=== PATIENT | male | born 1960 | race Caucasian/White ===

== ENCOUNTER 2023-08-26 00:51 | Day surgery (SDC) | payer BC, SELFPAY ==
[2023-07-28 15:22] VITALS: BMI 31.8
--- NOTE | 2023-08-22 10:31 | SUR.PREOP ---
Patient called regarding upcoming procedure. Reviewed preop instructions, appointment times, and procedure prep.
[2023-08-26 07:51] VITALS: BP 167/103; PULSE 97; RESP 18; TEMP 36.2; O2SAT 98
[2023-08-26] MEDS: LACTATED RINGERS 1,000 ML 150 ML IV CONT (08:05)
--- NOTE | 2023-08-26 08:55 | WPDANESEPPF ---
Anes - Initial Pre Proc Eval Procedure: Operation Date: 08/26/23 09:00 Proposed Procedures p Screening Colonoscopy - Vargas Roa MD Date/Time: 08/26/23 08:55 Surgeon: Vargas Roa MD Pre Op Diagnosis: neoplasm screening Patient Data Age: 62 Gender: M Height: 1.75 m Weight: 108.1 kg Last Vital Signs Temp 97.2 F L 08/26/23 07:51 Pulse 97 08/26/23 07:51 Resp 18 08/26/23 07:51 BP 167/103 H 08/26/23 07:51 Pulse Ox 98 08/26/23 07:51 O2 Del Method Room Air 08/26/23 07:51 Allergies Allergy/AdvReac Type Severity Reaction Status Date / Time No Known Allergies Allergy Mild Verified 08/26/23 07:51 Home Medications Medication Instructions Recorded Confirmed Type loratadine 10 mg tablet (Claritin) 10 mg PO DAILY 07/28/23 08/26/23 History multivitamin with minerals 1 tablet PO DAILY 07/28/23 08/26/23 History Patient hx anesthesia problems: none Family hx anesthesia problems: none Results Review: All pre-operative results and documents have been reviewed as part of the pre-operative evaluation. COUNT INCLUDES [facility] Past Medical History Medical History Kidney stone Social History Social History (Updated 06/06/23 @ 14:01 by Rashida Villanueva MA) Smoking status: Never smoker Alcohol intake: current Drinks per week: 2 Substance use type: does not use Lack of Transportation: No Lack of Food: Never True Current Housing: I Have Housing Concerned About Future Housing: No Difficulty Paying Gas/Electric Bills: No Difficulty Paying for Meds: No Currently Unemployed: No Education: Master's Degree or Higher Difficulty w/ Childcare or Family Care: No Living arrangements: other Additional living arrangements comments: with sp Anes - Eval Final PreProcedure Day of Procedure 08/26/23 08:55 Patient weight: obese Airway: Mallampati scale class II ASA classification: II Anesthesia type and monitoring: general GIVS and standard monitoring Results Review: All pre-operative results and documents have been reviewed as part of the pre-operative evaluation. Informed Consent: The patient's anesthetic plan and its attendant risks and benefits were discussed with the patient/family/POA. Questions were solicited and answers provided to the satisfaction of the patient/family/POA.
--- NOTE | 2023-08-26 09:07 | PM.HPGS ---
History of Present Illness History of Present Illness Consent: Risks, benefits, and alternatives have been discussed and questions answered. Patient agrees to proceed with procedure. Chief complaint: neoplasm screening Narrative: Diomedes Unger is a 62 year old male here for first screening colonoscopy Review of Systems Constitutional: Constitutional: Denies headache(s) and Denies weakness Eyes: Eyes: Denies blurry vision ENT: Reports Normal hearing present, Denies headache(s) and Denies neck pain Cardiovascular: Cardiovascular: Denies chest pain and Denies dyspnea Respiratory: Respiratory: Denies dyspnea Gastrointestinal: Gastrointestinal: Reports no additional gastrointestinal complaints Genitourinary: Genitourinary: Denies dysuria Musculoskeletal: Musculoskeletal: Denies neck pain Integumentary/Breasts: Skin/Breast: Denies dry skin Neurologic: Reports Normal hearing present, Denies headache(s) and Denies weakness Psychiatric: Psychiatric: Denies anxiety Endocrine: Endocrine: Denies change in body appearance Hematologic/Lymphatic: Hematologic/Lymphatic: Denies easy bleeding Allergic/Immunologic: Allergic/Immunologic: Denies urticaria [facility] Past Medical History Medical History Kidney stone Social History Social History (Updated 06/06/23 @ 14:01 by Rashida Villanueva MA) Smoking status: Never smoker Alcohol intake: current Drinks per week: 2 Substance use type: does not use Lack of Transportation: No Lack of Food: Never True Current Housing: I Have Housing Concerned About Future Housing: No Difficulty Paying Gas/Electric Bills: No Difficulty Paying for Meds: No Currently Unemployed: No Education: Master's Degree or Higher Difficulty w/ Childcare or Family Care: No Living arrangements: other Additional living arrangements comments: with sp Meds Home Medications and Allergies Home Medications Medication Instructions Recorded Confirmed Type loratadine 10 mg tablet (Claritin) 10 mg PO DAILY 07/28/23 08/26/23 History multivitamin with minerals 1 tablet PO DAILY 07/28/23 08/26/23 History Allergies Allergy/AdvReac Type Severity Reaction Status Date / Time No Known Allergies Allergy Mild Verified 08/26/23 07:51 Vital Signs Vital Signs - 24 hr 08/26/23 07:51 Temperature 97.2 F L Pulse Rate 97 Respiratory Rate 18 Blood Pressure 167/103 H Pulse Oximetry 98 Oxygen Delivery Room Air Exam Const: General: comfortable and no acute distress HENMT: Face/Nose/Sinus: Normal nares present Eyes: General: appearance normal, both eyes and all related structures Neck: Neck: no JVD Resp: Auscultation: clear to auscultation bilaterally Cardio: Rate: regular rate Rhythm: regular rhythm GI: Inspection: non-distended GI Palp: Yes Soft to palpation Skin: General skin exam: normal color Neuro: General: gait normal Speech: normal speech Extrem: General: normal to inspection Psych: Mental Status: mental status grossly normal Assessment and Plan Assessment and plan (1) Malignant neoplasm of colon, unspecified site: Code(s): C18.9 - Malignant neoplasm of colon, unspecified Status: Acute Assessment and Plan: colonoscopy
[2023-08-26 09:28] VITALS: BP 124/96; PULSE 79; RESP 18; O2SAT 94
[2023-08-26 09:38] VITALS: BP 121/74; PULSE 79; RESP 18; O2SAT 94
[2023-08-26 09:48] VITALS: BP 128/80; PULSE 81; RESP 18; O2SAT 96
== END 2023-08-26 09:50 | disposition home or self-care (01) ==
PROVIDERS: PCP Family Medicine; Visit Provider Internal Medicine Gastroenterology
PROC: 0DJD8ZZ Inspection of Lower Intestinal Tract, Via Natural or Artificial Opening Endoscopic (ICD-10-PCS; CPT 45378; principal; 2023-08-26 09:00)
DX: Z12.11 Encounter for screening for malignant neoplasm of colon (principal); K64.8 Other hemorrhoids; K57.30 Diverticulosis of large intestine without perforation or abscess without bleeding
CPT/HCPCS: 45378; J2704; J7120

== ENCOUNTER 2024-01-14 08:47 | Outpatient (CLI) | payer BC, SELFPAY ==
--- NOTE | 2024-01-16 15:20 | WPDHOMESLEEP ---
Sleep Study - Home Unattended Date of Study: 01/14/24 Ordering Provider: Wes Lewis MD Interpreting Provider: Nyasia Yi MD Home Sleep Study Type: Watch PAT Height: 1.75 m Weight: 106.594 kg Body Mass Index: 34.7 Neck Circumference (inches): 16.5 Levan: 7 Reason for Sleep Study Loud snoring, witnessed apneas Sleep History Diomedes Unger is a 63-year-old man with loud snoring and witnessed apneas according to his . He recently had a colonoscopy, and under anesthesia, he was noted to snore loudly and have apnea. He never awakens from sleep feeling short of breath. He never wakes at night with heartburn, belching or coughing.??He constantly snores, and constantly snores loudly enough that others complain. He occasionally has trouble sleeping when he has a cold. He never wakes up gasping for breath during the night. He occasionally has breathing problems at night observed by others. He never sweats excessively at night. He never notices his heart pounding or beating irregularly during the night. He rarely falls asleep during the day. He never falls asleep involuntarily, never falls asleep while driving. He never experiences loss of muscle tone with strong emotion. He rarely has daytime difficulty at work due to excessive sleepiness. He never feels paralyzed on waking or falling asleep. He never experiences vivid dreams upon waking or falling asleep. He never feels afraid of going to sleep. He rarely has nightmares. He occasionally recalls his dreams. He occasionally has thoughts racing through his mind. He rarely feels sad or depressed. He never feels anxiety. He rarely notices parts of his body jerk. He never kicks during the night. He rarely feels crawling or aching feelings in his legs. He never feels leg pain at night. He never has morning jaw pain, never grinds his teeth at night. He never feels bothered by pain during the day, never awakened by pain during the night. He never wakes up feeling stiff in the morning, and he never wakes feeling sore or achy. He never awakens with pain in his neck, spine, or joints. He has not had a change in weight in the last year. Normal bedtime is 12 midnight, falling asleep within 15 minutes, waking 1 or 2 times at night. When he wakes during the night, he rolls over and returns to sleep within 5 minutes. Wake time is 6:00 a.m.. He keeps a similar schedule on weekends, goes to bed at 1:00 a.m. and wakes at 8:00 a.m.. He typically gets 6 hours of sleep per night. He does not take naps regularly, however a short nap lasting 10-15 minutes might be refreshing. He awakens feeling refreshed most days. Habits:??Tobacco: Never smoker Caffeine: 2 cups daily Alcohol: none Recreational substances: none [facility] Past Medical History Medical History (Updated 01/16/24 @ 15:40 by Nyasia Yi MD) HTN (hypertension), benign Kidney stone Social History Social History Smoking status: Never smoker Alcohol intake: current Drinks per week: 2 Substance use type: does not use Lack of Transportation: No Lack of Food: Never True Current Housing: I Have Housing Concerned About Future Housing: No Difficulty Paying Gas/Electric Bills: No Difficulty Paying for Meds: No Currently Unemployed: No Education: Master's Degree or Higher Difficulty w/ Childcare or Family Care: No Living arrangements: other Additional living arrangements comments: with sp Medications Home Medications Medication Instructions Recorded Confirmed Type loratadine 10 mg tablet (Claritin) 10 mg PO DAILY 07/28/23 12/19/23 History multivitamin with minerals 1 tablet PO DAILY 07/28/23 12/19/23 History lisinopril 10 mg tablet 10 mg PO DAILY #90 tabs 12/19/23 12/19/23 Rx Sleep Procedure The sleep study was completed using HstryPAT a technically adequate device with seven channels: peripheral a
[2024-01-16 15:44] VITALS: BMI 34.7
== END 2024-01-15 07:30 | disposition home or self-care (01) ==
LOC: ANHCSM 08:48
PROVIDERS: PCP Family Medicine; Visit Provider Family Medicine
DX: G47.33 Obstructive sleep apnea (adult) (pediatric) (principal); K76.89 Other specified diseases of liver; I10 Essential (primary) hypertension
CPT/HCPCS: 95800

== ENCOUNTER 2025-01-13 16:49 | Emergency (ER) | payer BC, SELFPAY ==
[2025-01-13 18:04] VITALS: BP 153/87; PULSE 73; RESP 16; TEMP 36.2; O2SAT 99
--- NOTE | 2025-01-13 18:37 | ED.EYEPROB ---
HPI - Eye Problem General Chief complaint: Eye Problems Stated complaint: stye on rt eye Time Seen by Provider: 01/13/25 18:37 Source: patient, RN notes reviewed and old records reviewed Mode of arrival: ambulatory Limitations: no limitations History of Present Illness HPI Narrative: 64-year-old male presents to the [facility] with a stye to the right eye, states it has been there for a couple of weeks. Patient has been warm compresses. Onset (ago): week(s) Related Data Home Medications ?Medication ?Instructions ?Recorded ?Confirmed ?Last Taken ?Type loratadine 10 mg tablet (Claritin) 10 mg PO DAILY 07/28/23 01/13/25 Unknown History multivitamin with minerals 1 tablet PO DAILY 07/28/23 01/13/25 Unknown History Allergies Allergy/AdvReac Type Severity Reaction Status Date / Time No Known Allergies Allergy Mild Verified 01/13/25 18:03 Review of Systems Review of Systems: All systems reviewed & are unremarkable except as noted in HPI and below Constitutional: Constitutional: Reports no additional constitutional complaints Eyes: Eyes: Reports as per HPI ENT: Reports system reviewed and no additional complaints, except as documented Cardiovascular: Cardiovascular: Reports no additional cardiovascular complaints, Denies chest pain and Denies dyspnea Respiratory: Respiratory: Reports no additional respiratory complaints, Denies chest congestion, Denies cough and Denies dyspnea Musculoskeletal: Musculoskeletal: Reports no additional musculoskeletal complaints Integumentary/Breasts: Skin/Breast: Reports system reviewed and no additional complaints, except as docu [facility] Past Medical History Medical History HTN (hypertension), benign Kidney stone Social History Social History Smoking status: Never smoker Alcohol intake: current Drinks per week: 2 Substance use type: does not use Lack of Transportation: No Lack of Food: Never True Current Housing: I Have Housing Concerned About Future Housing: No Difficulty Paying Gas/Electric Bills: No Difficulty Paying for Meds: No Currently Unemployed: No Education: Master's Degree or Higher Difficulty w/ Childcare or Family Care: No Living arrangements: other Additional living arrangements comments: with sp Comments At the time of my signature, I reviewed and agree with the nursing past medical, surgical, social, and family history. There is no relevant family history pertinent to the patient complaint. Exam Const: General: cooperative, healthy appearing, comfortable, no acute distress, well developed, alert and well nourished Nutritional Appearance: well nourished Orientation/consciousness: patient oriented x3 Limitations: no limitations HENMT: Head: normal to inspection Mouth: Yes Normal oral and palatal mucosa present, Yes lip normal, Yes tongue normal and Yes moist mucous membranes Eyes: General: appearance normal, both eyes and all related structures Alignment and Position: alignment normal Eyelids: eyelid abnormality right lower eyelid inflamed cyst external lid and swelling (mild around stye); without erythema, without foreign bodies, without lacerations and no crusting or scaling of lid margins Neck: Neck: normal visual inspection, full ROM, no lymphadenopathy and no meningeal signs Chest: Chest palpation & inspection: normal inspection of the chest Resp: Effort & Inspection: normal respiratory effort and able to speak in complete sentences Cardio: Rate: regular rate Skin: General skin exam: normal color and no rashes or lesions noted Neuro: General: patient oriented x3, gait normal, moves all extremities and no meningeal signs Cognition (Neuro): normal cognition Speech: normal speech Gait exam (Neuro): Normal gait present Extrem: General: normal to inspection, full ROM, capillary refill normal and normal gait Psych: Appearance: grossly normal and well kempt Mental Status: mental status grossly normal Speech and movement: Normal speech and movement present and Clear speech present Affect: normal affect Attitude: cooperative Course Course Level of Care: Express Care Visit Vital Signs Vital signs: Vital Signs Temperature 97.1 F L 01/13/25 18:04 Pulse Rate 73 01/13/25 18:04 Respiratory Rate 16 01/13/25 18:04 Blood Pressure 153/87 H 01/13/25 18:04 Pulse Oximetry 99 01/13/25 18:04 Temperature 97.1 F L 01/13/25 18:04 Pulse Rate 73 01/13/25 18:04 Respiratory Rate 16 01/13/25 18:04 Blood Pressure 153/87 H 01/13/25 18:04 Pulse Oximetry 99 01/13/25 18:04 Reviewed MDM - Eye Problem MDM Narrative Medical decision making narrative: Patient sitting exam. Patient is nontoxic, vitals are stable. Patient presents with a significant cyst to the right lower eyelid. Reports been there for several weeks. Discussed doing antibiotic ointment, encouraged to follow up with an deburrer strip for further evaluation. Patient is appropriate for outpatient treatment with close follow-up Discharge instructions reviewed with patient, as well as provided in writing per nursing staff. The instructions also include specific and strict return/GO TO THE ER as well as f/u information. All questions have been answered, and the patient deny any further questions with discharge and discharge plan. Some parts of this dictation were generated by voice recognition software and may contain typographical and/or grammatical inaccuracies. Differential Diagnosis Differential diagnosis: Likely corneal abrasion, conjunctivitis, periorbital cellulitis and other (Stye, blepharitis) Critical Care Time Critical Care Time Critical Care Time: No Discharge Plan Discharge Clinical Impression: Hordeolum externum (stye) Qualifiers: Laterality: right Eyelid: lower Qualified Code(s): H00.012 - Hordeolum externum right lower eyelid Patient Disposition: Home Condition: Stable Instructions: Antibiotic Form, Stye (ED) Additional Instructions: Apply warm compresses every 2-3 hours for 10-15 minutes. Apply the prescription ointment as directed You should follow-up with an eye doctor within the next 72 hours [facility]: [place]- [phone] [facility] [phone] [facility] [phone] [place]: [facility] [phone] or [phone] [facility] [phone] [facility] [phone] [facility] [phone] [facility]- [phone] Patient Language: Swedish Prescriptions: New erythromycin 5 mg/gram (0.5 %) ointment 0.5 inch RIGHT EYE TID 7 Days Qty: 3.5 0RF erythromycin 5 mg/gram (0.5 %) ointment 0.5 inch RIGHT EYE TID 7 Days Qty: 3.5 0RF No Action irbesartan 300 mg tablet 300 mg PO DAILY Qty: 90 1RF Men's One Daily Tablet 1 tablet PO DAILY loratadine [Claritin] 10 mg Tablet 10 mg PO DAILY (DME) Auto -PAP See Rx Instructions .Route .MEDSUPPLY Qty: 1 0RF Rx Instructions: As directed amlodipine 5 mg tablet 5 mg PO DAILY Qty: 90 1RF Follow-up/Referrals: Wes Lewis MD [Primary Care Provider] - 1 Week Time of Disposition: 18:44
== END 2025-01-13 18:50 | disposition home or self-care (01) ==
PROVIDERS: Emergency Provider Nurse Practitioner; PCP Family Medicine
DX: H00.012 Hordeolum externum right lower eyelid (principal); I10 Essential (primary) hypertension
CPT/HCPCS: 99213; G0463